=== PATIENT | female | born 1975 | race Hispanic/Latino ===

== ENCOUNTER 2019-01-15 14:24 | Outpatient (CLI) | payer BC ==
--- NOTE | 2019-01-20 18:23 | MMO ---
/Bilateral MAMMO Bilat Screen [facility]. CLINICAL HISTORY: Patient is 44 years old and is seen for screening. The patient has no family history of breast cancer. The patient has no personal history of cancer. VIEWS: The views performed were: bilateral craniocaudal with tomosynthesis and bilateral mediolateral oblique with tomosynthesis. FILMS COMPARED: The present examination has been compared to prior imaging studies performed at [facility] on 07/02/2011, 05/04/2014 and 10/15/2016. MAMMOGRAM FINDINGS: The breasts are heterogeneously dense, which could obscure a lesion on mammography. There are no suspicious masses, suspicious calcifications, or new areas of architectural distortion. IMPRESSION: THERE IS NO MAMMOGRAPHIC EVIDENCE OF MALIGNANCY. A ROUTINE FOLLOW-UP MAMMOGRAM IN 1 YEAR IS RECOMMENDED. THE RESULTS OF THIS EXAM WERE SENT TO THE PATIENT. ACR BI-RADS Category 1 - Negative MAMMOGRAPHY NOTE: 1. A negative mammogram report should not delay a biopsy if a dominant of clinically suspicious mass is present. 2. Approximately 10% to 15% of breast cancers are not detected by mammography. 3. Adenosis and dense breasts may obscure an underlying neoplasm.
== END 2019-01-15 14:25 | disposition home or self-care (01) ==
LOC: BICULT 14:24
PROVIDERS: ATTEND Physician Assistant
DX: Z12.31 Encounter for screening mammogram for malignant neoplasm of breast (principal)
CPT/HCPCS: 77063; 77067

== ENCOUNTER 2019-01-15 15:19 | Outpatient (CLI) | payer BC ==
--- NOTE | 2019-01-15 17:04 | ULT ---
PELVIC ULTRASOUND: 01/15/19 HISTORY: Pelvic pain. COMPARISON: 05/04/10. TECHNIQUE: Transabdominal and endovaginal imaging of the pelvis is performed. ovaries are interrogated with rodriguez scale, color, doppler imaging and spectral waveform analysis. FINDINGS: The uterus is identified measuring 8.9 x 4.9 x 6.1 cm. Endometrium has a homogeneous echotexture, redd suring 0.6 cm on the transabdominal images. In the posterior myometrium, there is a 0.9 x 0.8 x 0.8 c m hypoechoic focus likely representing a small uterine leiomyoma. Small amount of fluid in the cervix due to Nabothian cyst is noted. Right ovary has a normal echotexture, measuring 2.4 x 1.1 x 1.3 cm. Left ovary has a normal echotexture, measuring 2.9 x 1.5 x 1.8 cm. There is a hypoechoic focus within the left ovary measuring 1.7 x 1.3 x 1.2 cm likely due to a dominant follicle. There is no free fluid. OVARIAN DOPPLER: Vascular flow to the right and left ovary. IMPRESSION: Possible uterine leiomyoma. Posterior uterine myometrial lesion is not appreciated on the previous ex amination. Better interrogation with pelvic MRI if clinically warranted. POS: [facility]
== END 2019-01-15 15:20 | disposition home or self-care (01) ==
LOC: BICULT 15:19
PROVIDERS: ATTEND Physician Assistant
DX: R10.2 Pelvic and perineal pain (principal); N85.9 Noninflammatory disorder of uterus, unspecified
CPT/HCPCS: 76856

== ENCOUNTER 2019-02-08 12:31 | Outpatient (CLI) | payer BC ==
--- NOTE | 2019-02-08 13:58 | MRI ---
MRI BREAST WITH AND WITHOUT IV CONTRAST WITH REVIEW AT AN INDEPENDENT 3D WORK STATION: HISTORY: A 44-year-old female with bilateral breast pain and breast discharge. Bilateral green/rodriguez discharge upon separation for 10 years. No family history of breast cancer. IV CONTRAST: 14 mL MultiHance. CORRELATION: Mammograms of 01/15/2019. FINDINGS: There are multiple bilateral cysts with low T1, high T2 signal, and no postcontrast enhancement. No evidence of solid mass or abnormal enhancement is seen. No axillary or internal mammary lymphadenopa thy is identified. No abnormal ductal dilatation is noted. IMPRESSION: BIRADS category 2 - benign findings. Return to annual mammographic screening. POS: [facility]
== END 2019-02-08 12:32 | disposition home or self-care (01) ==
LOC: BICMRI 12:31
PROVIDERS: ATTEND Physician Assistant
DX: N64.52 Nipple discharge (principal)
CPT/HCPCS: A9577; C8908